=== PATIENT | female | born 1970 | race African-American/Black ===

== ENCOUNTER → 2016-11-14 | Day surgery (SDC) | payer OTHER ==
[~2016-11-14] VITALS: Ht 167.6 cm; Wt 115.2 kg
[~2016-11-14] MED LIST: ATRIPLA 600 MG-1 TA1 PO; ESTRACE1 M1 PO; IMITREX25 MG PO; JANUVIA100 MG PO; LAMICTAL200 MG PO; LAMICTAL25 MG PO; LYRICA100 M1 PO; METFORMIN HCL500 MG PO; MIRALAX17 GM PO; PRILOSEC20 M1 PO; Percocet 325 MG1 TAB PO; VENTOLIN H0.09 MG/AC INH; VISTARIL50 MG PO; VITAMIN D50000 UNIT PO; VOLTAREN50 M1 PO; XANAX XR1 MG PO; XANAX XR2 MG PO; ZOLOFT100 MG PO; ZOLOFT50 MG PO; ZYPREXA15 M1 PO
--- NOTE | ~2016-11-14 | O ---
[place], [place] OPERATIVE NOTE NAME: MARIBEL JIMENEZ REDWOOD LLCT #: [id number] UNIT #: [id number] ROOM: DOCTOR: FARIDEH VELAZQUEZ MD BIRTHDATE: [birth year] DOS: 11/14/2016 PREOPERATIVE DIAGNOSIS: Dysphagia. FINAL DIAGNOSIS: Distal esophagitis, grade 1, nonerosive, mild reflux. PROCEDURE DONE: EGD with antral biopsy. SURGEON: Dr. Velazquez. DESCRIPTION OF PROCEDURE: After MAC anesthesia placed in left lateral position. After the mouth guard attached the scope inserted through mouth, all the way up to the second portion of the duodenum. There is no tumor, mass, ulcer or any bile in there. Antral biopsy taken. Retroflexion reveals no pathology on the GE junction side, no hiatal hernia. The scope is brought back from retroflexion and pulled back. There is a very mild distal esophagitis. Esophagus itself shows no pathology. There is no sign of any stricture, tumor, or blockage. The pharynx and larynx showed maybe some thrush there and she takes her medication. IMPRESSION: Distal esophagitis, possible reflux. We will see the patient in 10 days. Farideh Velazquez MD CM:OPRECORD:OPERATIVE NOTE [id number] FARIDEH VELAZQUEZ MD 11/14/16 1145 interface
[2016-11-14 07:10] VITALS: BP 106/57
[2016-11-14 08:05] VITALS: BP 127/78
[2016-11-14 08:20] VITALS: BP 136/86
[2016-11-14 08:35] VITALS: BP 124/74
== END | disposition home or self-care (01) ==
LOC: SDC 11-10 13:15
DX: K21.0 Gastro-esophageal reflux disease with esophagitis (principal); F41.9 Anxiety disorder, unspecified; G43.909 Migraine, unspecified, not intractable, without status migrainosus; F32.9 Major depressive disorder, single episode, unspecified; Z85.41 Personal history of malignant neoplasm of cervix uteri; Z98.51 Tubal ligation status; Z90.710 Acquired absence of both cervix and uterus; Z83.3 Family history of diabetes mellitus; F17.210 Nicotine dependence, cigarettes, uncomplicated

== ENCOUNTER → 2016-11-18 | Outpatient (CLI) | payer OTHER | END | disposition home or self-care (01) | LOC: US 11-17 09:30 | DX: E11.9 Type 2 diabetes mellitus without complications (principal); R10.13 Epigastric pain; R05 Cough; K76.0 Fatty (change of) liver, not elsewhere classified; R07.89 Other chest pain; R06.02 Shortness of breath; R09.89 Other specified symptoms and signs involving the circulatory and respiratory systems; F17.200 Nicotine dependence, unspecified, uncomplicated ==

== ENCOUNTER → 2017-02-02 | Day surgery (SDC) | payer OTHER ==
[2017-02-01 14:44] VITALS: BP 138/83
[2017-02-01 15:41] LABS: HEMATOCRIT 36.9 % (37.0-47.0); HEMOGLOBIN 12.4 g/dl (12.0-16.0); MEAN CELL VOLUME 87.6 fl (81.0-99.0); MEAN CORPUSCULAR HGB 29.5 pg (27.0-31.0); MEAN CORPUSCULAR HGB CONC 33.6 g/dl (33.0-37.0); PLATELET COUNT AUTOMATED 244 10*3/uL (130-400); RED BLOOD COUNT 4.21 10*6/uL (4.10-5.10); WHITE BLOOD COUNT 10.3 10*3/uL (4.8-10.8)
[2017-02-01 15:42] LABS: BILIRUBIN NEGATIVE (NEGATIVE); BLOOD NEGATIVE (NEGATIVE); CLARITY CLEAR (CLEAR); COLOR YELLOW (YELLOW); GLUCOSE NEGATIVE (NEGATIVE); KETONE NEGATIVE (NEGATIVE); LEUKO ESTERASE NEGATIVE (NEGATIVE); NITRITE NEGATIVE (NEGATIVE); PROTEIN NEGATIVE (NEGATIVE); SPECIFIC GRAVITY 1.025 (1.005-1.030); UROBILINOGEN 0.2 E.U./dl (0.2-1.0)
[2017-02-01 15:50] LABS: EPITHELIAL CELLS TNTC
[2017-02-01 15:51] LABS: BACTERIA TRACE; RBC 0-2 rbc/hpf (0-2); YEAST TRACE
[2017-02-01 16:04] LABS: EOSINOPHIL # 0.1 10*3/uL (0-0.4); EOSINOPHILS 1 % (1-4); NEUTROPHIL # 4.2 10*3/uL (2.3-7.9); NEUTROPHILS 41 % (47-73); TOTAL CELLS COUNTED 100 #CELLS
[2017-02-01 16:05] LABS: PLATELET SUFFICIENCY NORMAL (NORMAL)
[2017-02-01 16:06] LABS: DIFFERENTIAL COMMENT SMUDGE CELLS PRESENT
[2017-02-01 16:14] LABS: PROTHROMBIN TIME 10.5 SECONDS (9.0-12.4)
[2017-02-01 16:15] LABS: ALBUMIN 3.4 gm/dl (3.1-4.5); ALKALINE PHOSPHATASE 93 U/L (45-117); BILIRUBIN, DIRECT < 0.1 mg/dL (0.0-0.2); BILIRUBIN, TOTAL 0.2 mg/dl (0.2-1.0); BUN 8 mg/dl (7-24); CARBON DIOXIDE 27 mmol/L (21-32); CHLORIDE 108 mmol/L (98-107); EST GLOM FILT AFRICAN AMERICAN > 60 ml/min; GLUCOSE 136 mg/dL (65-99); POTASSIUM 3.8 mmol/L (3.5-5.1); SGOT/AST 11 IU/L (3-35); SGPT/ALT 17 U/L (12-78); SODIUM 144 mmol/L (136-145); TOTAL PROTEIN 7.9 gm/dL (6.4-8.2)
[2017-02-02] VITALS (8 sets, daily range): BP systolic 120–165; BP diastolic 67–84
[~2017-02-02] VITALS: Ht 167.6 cm; Wt 111.1 kg
[~2017-02-02] MED LIST changes: +CYCLOBENZAPRINE10 MG PO; +MELATONIN5 M1 PO; +NORCO 5-325 TA1 EACH PO; +VITAMIN D50000 I3 PO
--- NOTE | ~2017-02-02 | O ---
[place], [place] OPERATIVE NOTE NAME: [id number] UNIT #: [id number] ROOM: DOCTOR: ELINA CANALES MD BIRTHDATE: [birth year] DOS: 02/02/2017 PREOPERATIVE DIAGNOSIS: Chronic cholecystitis. POSTOPERATIVE DIAGNOSIS: Chronic cholecystitis. PROCEDURE: Laparoscopic cholecystectomy. SURGEON: Elina Canales M.D. HOSPITALITY AIDE: MS3. ANESTHESIA: General with endotracheal intubation. INDICATIONS: This is a 46-year-old lady with a history of chronic cholecystitis and gallbladder sludge, who is here for the above-mentioned procedure. The procedure and its complications were explained to the patient in detail preoperatively. Complications that were discussed included but were not limited to bleeding, infection, damage to underlying vital structures, inadvertent injury, common bile duct, hematoma, seroma, sludge, biloma formation, incisional hernia formation, prolonged postoperative pain. She agreed to proceed. DESCRIPTION OF PROCEDURE: After identifying the patient, the patient was brought to the operating suite and laid in the supine position. After induction of general anesthesia, the parts were then painted and draped in the usual sterile fashion. A time-out procedure was called as well and the transverse incision just below the umbilicus was made. The skin and the subcutaneous tissue were incised in the line of the incision. The fascia was incised and the peritoneum was opened and a 12 mm Ngoc port was introduced and a pneumoperitoneum was created. Under direct vision, an epigastric incision of 10 mm and two 5 mm incisions were made in the right upper quadrant and appropriate size ports were introduced. The gallbladder was retracted superiorly and laterally. The cystic duct and the cystic artery were meticulously dissected until the critical view of safety was obtained and the triangle of Calot was identified thereafter each of these structures were clipped 3 times and cut between the first and the second clip. The gallbladder was then removed from the bed of the gallbladder with the help of the electrocautery. It was placed in an Endo Catch bag and removed from the peritoneal cavity and sent for histopathological diagnosis. Hemostasis was achieved in the liver bed. Thereafter, the right upper quadrant and the epigastric ports were removed and there was no bleeding seen. The umbilical port was removed as well. The fascial stay sutures were tied together and an additional stitch was taken to approximate the musculature of the nearby umbilicus. Thereafter, the subcutaneous tissue was irrigated and all the 4 incisions. The skin edges were infiltrated with 1% plain lidocaine and were approximated with the help of 4-0 Vicryl in a subcuticular running fashion. Dressings were given. The patient tolerated the procedure well. She was extubated uneventfully and brought back to the recovery room in stable fashion. There were no complications. Dr. Elina Canales, the attending surgeon, was present throughout the operating case. [place], [place] OPERATIVE NOTE NAME: MARIBEL JIMENEZ UNIT #: [id number] ROOM: DOCTOR: ELINA CANALES MD BIRTHDATE: [birth year] Elina Canales MD CM:OPRECORD:OPERATIVE NOTE 1132 1154 ELINA CANALES MD 02/02/17 1154 interface
== END | disposition home or self-care (01) ==
LOC: SDC 02-01 13:15
PROVIDERS: Surgery
DX: K81.1 Chronic cholecystitis (principal); K21.9 Gastro-esophageal reflux disease without esophagitis; I72.9 Aneurysm of unspecified site; G43.909 Migraine, unspecified, not intractable, without status migrainosus; F41.9 Anxiety disorder, unspecified; Z21 Asymptomatic human immunodeficiency virus [HIV] infection status; F32.9 Major depressive disorder, single episode, unspecified; Z85.41 Personal history of malignant neoplasm of cervix uteri; Z83.3 Family history of diabetes mellitus; Z90.710 Acquired absence of both cervix and uterus; Z98.51 Tubal ligation status; Z87.891 Personal history of nicotine dependence

== ENCOUNTER → 2017-02-10 | Outpatient (CLI) | payer OTHER ==
[2017-02-10 12:13] LABS: HEMOGLOBIN A1c 7.5 % (4.8-5.6)
== END | disposition home or self-care (01) ==
LOC: ORTHO 01:18
PROVIDERS: Orthopaedic Surgery
DX: M25.512 Pain in left shoulder (principal); M54.2 Cervicalgia; E11.42 Type 2 diabetes mellitus with diabetic polyneuropathy

== ENCOUNTER 2017-02-23 09:25 | Emergency (ER) | payer OTHER ==
[~2017-02-23] VITALS: Ht 167.6 cm; Wt 113.4 kg
[2017-02-23] MEDS ORDERED: ORPHENADRINE C100 M1 PO (11:13)
[2017-02-23] MEDS ORDERED: NAPROSYN500 MG PO (11:13)
== END 2017-02-23 11:25 | disposition home or self-care (01) ==
LOC: ED 09:25
DX: M54.12 Radiculopathy, cervical region (principal); F31.9 Bipolar disorder, unspecified; E11.9 Type 2 diabetes mellitus without complications; F17.200 Nicotine dependence, unspecified, uncomplicated; Z79.899 Other long term (current) drug therapy

== ENCOUNTER 2017-09-10 22:57 | Emergency (ER) | payer OTHER ==
[~2017-09-10] VITALS: Ht 170.1 cm; Wt 104.3 kg
[~2017-09-10 22:57] MED LIST changes: +NAPROSYN500 MG PO; +ORPHENADRINE C100 M1 PO
[2017-09-10 23:09] VITALS: BP 134/100
[2017-09-11] MEDS ORDERED: AUGMENTIN 500500 M1 PO (00:31)
[2017-09-11] MEDS ORDERED: ROBITUSSIN DM 105 ML PO (00:31)
[2017-09-11] MEDS ORDERED: PREDNISONE20 M1 PO (00:31)
== END 2017-09-11 00:56 | disposition home or self-care (01) ==
LOC: ED 22:57
DX: J40 Bronchitis, not specified as acute or chronic (principal); J04.0 Acute laryngitis; J32.9 Chronic sinusitis, unspecified; F17.200 Nicotine dependence, unspecified, uncomplicated; Z90.710 Acquired absence of both cervix and uterus; Z90.721 Acquired absence of ovaries, unilateral

== ENCOUNTER → 2018-01-30 | Outpatient (CLI) | payer OTHER ==
[~2018-01-30] MED LIST changes: +AUGMENTIN 500500 M1 PO; +PREDNISONE20 M1 PO; +ROBITUSSIN DM 105 ML PO
== END | disposition home or self-care (01) ==
LOC: RAD 11:06
DX: M54.2 Cervicalgia (principal); G89.29 Other chronic pain

== ENCOUNTER → 2018-05-02 | Outpatient (CLI) | payer OTHER | END | disposition home or self-care (01) | LOC: RAD 13:25 | DX: J93.9 Pneumothorax, unspecified (principal); V89.2XXD Person injured in unspecified motor-vehicle accident, traffic, subsequent encounter ==

== ENCOUNTER → 2018-07-04 | Outpatient (CLI) | payer OTHER ==
[2018-07-04 14:46] LABS: HEMOGLOBIN 12.2 g/dl (12.0-16.0); MEAN CELL VOLUME 87.5 fl (81.0-99.0); MEAN CORPUSCULAR HGB 28.8 pg (27.0-31.0); MEAN PLATELET VOLUME 12.3 fl (9.6-12.3); PLATELET COUNT AUTOMATED 249 10*3/uL (130-400); RED BLOOD COUNT 4.23 10*6/uL (4.10-5.10); RED CELL DISTRI WIDTH 13.7 % (0-14.5); WHITE BLOOD COUNT 13.4 10*3/uL (4.8-10.8)
[2018-07-04 15:06] LABS: ALBUMIN 3.3 gm/dl (3.1-4.5); BUN 9 mg/dl (7-24); CHLORIDE 102 mmol/L (98-107); POTASSIUM 3.8 mmol/L (3.5-5.1); SGOT/AST 10 IU/L (3-35); SGPT/ALT 18 U/L (12-78); SODIUM 136 mmol/L (136-145)
[2018-07-04 15:07] LABS: ALKALINE PHOSPHATASE 97 U/L (45-117); TOTAL PROTEIN 8.7 gm/dL (6.4-8.2)
[2018-07-04 16:51] LABS: BASOPHILS 1 % (0-1); TOTAL CELLS COUNTED 100 #CELLS
[2018-07-04 16:52] LABS: PLATELET SUFFICIENCY NORMAL (NORMAL)
[2018-07-06 16:07] LABS: HIV 1 AB Positive (Negative); HIV 2 AB Negative (Negative); INTERPRETATION HIV-1 Positive (.)
== END | disposition home or self-care (01) ==
LOC: LAB 13:19
PROVIDERS: Pediatrics
DX: J40 Bronchitis, not specified as acute or chronic (principal); E11.9 Type 2 diabetes mellitus without complications; F17.200 Nicotine dependence, unspecified, uncomplicated; J18.9 Pneumonia, unspecified organism

== ENCOUNTER 2018-08-23 13:26 | Emergency (ER) | payer OTHER ==
[~2018-08-23] VITALS: Ht 165.1 cm; Wt 101.6 kg
[2018-08-23 13:30] VITALS: BP 146/82
[2018-08-23 14:17] LABS: BASO % 0.4 % (0.0-1.0); EOS % 0.1 % (1.0-4.0); HEMATOCRIT 33.7 % (37.0-47.0); HEMOGLOBIN 11.3 g/dl (12.0-16.0); LYMPH # 2.8 10*3/uL (1.3-4.4); LYMPH % 26.9 % (27.0-41.0); MEAN CELL VOLUME 89.2 fl (81.0-99.0); MEAN CORPUSCULAR HGB 29.9 pg (27.0-31.0); MEAN CORPUSCULAR HGB CONC 33.5 g/dl (33.0-37.0); MEAN PLATELET VOLUME 11.2 fl (9.6-12.3); MONO # 0.5 10*3/uL (0.1-1.0); MONO % 4.7 % (3.0-9.0); NEUT # 7.1 10*3/uL (2.3-7.9); NEUT % 67.4 % (47.0-73.0); PLATELET COUNT AUTOMATED 207 10*3/uL (130-400); RED BLOOD COUNT 3.78 10*6/uL (4.10-5.10); RED CELL DISTRI WIDTH 14.3 % (0-14.5); WHITE BLOOD COUNT 10.5 10*3/uL (4.8-10.8)
[2018-08-23 14:32] LABS: ALBUMIN 3.6 gm/dl (3.1-4.5); ALKALINE PHOSPHATASE 84 U/L (45-117); BUN 9 mg/dl (7-24); CHLORIDE 105 mmol/L (98-107); CREATININE 0.71 mg/dL (0.55-1.02); POTASSIUM 3.8 mmol/L (3.5-5.1); SGOT/AST 16 IU/L (3-35); SGPT/ALT 23 U/L (12-78); SODIUM 137 mmol/L (136-145)
== END 2018-08-23 16:33 | disposition home or self-care (01) ==
LOC: ED 13:26
PROVIDERS: Physician Assistant
DX: R73.9 Hyperglycemia, unspecified (principal); R42 Dizziness and giddiness; R51 Headache; R11.0 Nausea; Z79.899 Other long term (current) drug therapy

== ENCOUNTER → 2019-07-04 | Outpatient (CLI) | payer OTHER ==
[~2019-07-04] MED LIST changes: +FLONASE ALLERG9.9 ML NAS
[2019-07-04 11:25] LABS: HEMATOCRIT 36.8 % (37.0-47.0); HEMOGLOBIN 12.1 g/dl (12.0-16.0); MEAN CELL VOLUME 88.7 fl (81.0-99.0); MEAN CORPUSCULAR HGB 29.2 pg (27.0-31.0); MEAN CORPUSCULAR HGB CONC 32.9 g/dl (33.0-37.0); MEAN PLATELET VOLUME 11.7 fl (9.6-12.3); PLATELET COUNT AUTOMATED 211 10*3/uL (130-400); RED BLOOD COUNT 4.15 10*6/uL (4.10-5.10); RED CELL DISTRI WIDTH 14.5 % (0-14.5); WHITE BLOOD COUNT 10.1 10*3/uL (4.8-10.8)
[2019-07-04 11:43] LABS: ALBUMIN 3.4 gm/dl (3.1-4.5); ALKALINE PHOSPHATASE 73 U/L (45-117); BUN 7 mg/dl (7-24); CHLORIDE 109 mmol/L (98-107); CHOLESTEROL 149 mg/dL (<200); CPK 83 U/L (26-192); HDL CHOLESTEROL 32 mg/dl (40-60); LDL CHOLESTEROL 88 mg/dL (9-159); POTASSIUM 3.8 mmol/L (3.5-5.1); SGOT/AST 13 IU/L (3-35); SGPT/ALT 20 U/L (12-78); SODIUM 142 mmol/L (136-145); THYROXINE (T4) TOTAL 10.4 ug/dl (4.8-13.9); TOTAL PROTEIN 7.4 gm/dL (6.4-8.2); TRIGLYCERIDES 143 mg/dl (<150); VLDL CHOLESTEROL 29 mg/dL (6-40)
[2019-07-04 11:48] LABS: T3 UPTAKE 34 % (31-39); THYROID STIM HORMONE (HS) 0.722 uIU/ml (0.358-4.75)
[2019-07-04 12:18] LABS: ATYPICAL LYMPHS 2 % (0-0); PLATELET SUFFICIENCY NORMAL (NORMAL); TOTAL CELLS COUNTED 100 #CELLS
[2019-07-08 14:05] LABS: CREATININE, RANDOM URINE 173.3 mg/dL (Not Estab.)
[2019-07-09 00:03] LABS: METANEPH-CREAT RATIO 0.4 (0.0-1.0)
== END | disposition home or self-care (01) ==
LOC: LAB 10:31
PROVIDERS: Pediatrics
DX: R04.0 Epistaxis (principal)

== ENCOUNTER 2019-08-29 11:25 | Emergency (ER) | payer OTHER ==
[~2019-08-29] VITALS: Ht 165.1 cm; Wt 118.8 kg
--- NOTE | ~2019-08-29 | EKG ---
[place], [place] ELECTROCARDIOGRAM REPORT NAME: MARIBEL JIMENEZ UNIT #: [id number] ROOM: DOCTOR: SUMIT DRAFT REPORT BIRTHDATE: [birth year] [facility] Test Date: 2019-08-29 Test Time: 11:28:52 Pat Name: MARIBEL JIMENEZ Department: Room: Gender: F Test Architect: : [id number] Requested By: RINKU PAT Order Number: [id number] Reading MD: Aisha Blake Measurements Intervals [place] Rate: 77 P: 69 WY: 148 QRS: 60 QRSD: 94 T: 55 QT: 383 QTc: 434 Interpretive Statements Sinus rhythm Baseline wander in lead(s) V4 Electronically Signed On 08-30-2019 7:40:50 PST by Aisha Blake CM:EKGRPT:ELECTROCARDIOGRAM REPORT [id number] RINKU ARANA DRAFT REPORT RINKU PAT MD
[2019-08-29 11:39] LABS: BASO # 0.1 10*3/uL (0.0-0.1); BASO % 0.7 % (0.0-1.0); EOS # 0.1 10*3/uL (0.0-0.4); EOS % 1.3 % (1.0-4.0); HEMATOCRIT 37.1 % (37.0-47.0); HEMOGLOBIN 12.2 g/dl (12.0-16.0); LYMPH # 4.4 10*3/uL (1.3-4.4); LYMPH % 51.6 % (27.0-41.0); MEAN CELL VOLUME 89.8 fl (81.0-99.0); MEAN CORPUSCULAR HGB 29.5 pg (27.0-31.0); MEAN CORPUSCULAR HGB CONC 32.9 g/dl (33.0-37.0); MEAN PLATELET VOLUME 11.2 fl (9.6-12.3); MONO # 0.8 10*3/uL (0.1-1.0); MONO % 8.8 % (3.0-9.0); NEUT # 3.2 10*3/uL (2.3-7.9); NEUT % 36.8 % (47.0-73.0); PLATELET COUNT AUTOMATED 225 10*3/uL (130-400); RED BLOOD COUNT 4.13 10*6/uL (4.10-5.10); RED CELL DISTRI WIDTH 14.6 % (0-14.5); WHITE BLOOD COUNT 8.6 10*3/uL (4.8-10.8)
[2019-08-29 11:50] LABS: INTERNATIONAL NORM RATIO 0.9 (2.0-3.5)
[2019-08-29 11:55] LABS: ALBUMIN 3.4 gm/dl (3.1-4.5); ALKALINE PHOSPHATASE 73 U/L (45-117); BUN 10 mg/dl (7-24); CHLORIDE 110 mmol/L (98-107); CREATININE 0.88 mg/dL (0.55-1.02); POTASSIUM 3.8 mmol/L (3.5-5.1); SGOT/AST 15 IU/L (3-35); SGPT/ALT 21 U/L (12-78); SODIUM 141 mmol/L (136-145); TOTAL PROTEIN 7.7 gm/dL (6.4-8.2)
[2019-08-29 11:59] LABS: TROPONIN I < 0.015 ng/ml (<0.045)
[2019-08-29 13:05] VITALS: BP 136/79
[2019-08-29 13:26] LABS: BILIRUBIN NEGATIVE (NEGATIVE); BLOOD NEGATIVE (NEGATIVE); CLARITY CLOUDY (CLEAR); COLOR YELLOW (YELLOW); GLUCOSE NEGATIVE (NEGATIVE); KETONE NEGATIVE (NEGATIVE); LEUKO ESTERASE NEGATIVE (NEGATIVE); NITRITE NEGATIVE (NEGATIVE); SPECIFIC GRAVITY >= 1.030 (1.005-1.030); UROBILINOGEN 0.2 E.U./dl (0.2-1.0)
[2019-08-29 13:37] LABS: BACTERIA 3+; EPITHELIAL CELLS 30-40
== END 2019-08-29 13:31 | disposition home or self-care (01) ==
LOC: ED 11:25
PROVIDERS: Emergency Medicine
DX: G43.909 Migraine, unspecified, not intractable, without status migrainosus (principal); E66.01 Morbid (severe) obesity due to excess calories; E11.9 Type 2 diabetes mellitus without complications; F12.90 Cannabis use, unspecified, uncomplicated; K21.9 Gastro-esophageal reflux disease without esophagitis; F17.200 Nicotine dependence, unspecified, uncomplicated; Z79.899 Other long term (current) drug therapy

== ENCOUNTER → 2019-10-02 | Outpatient (CLI) | payer OTHER ==
[2019-10-02 09:03] LABS: HEMATOCRIT 35.8 % (37.0-47.0); HEMOGLOBIN 11.6 g/dl (12.0-16.0); MEAN CELL VOLUME 88.8 fl (81.0-99.0); MEAN CORPUSCULAR HGB 28.8 pg (27.0-31.0); MEAN CORPUSCULAR HGB CONC 32.4 g/dl (33.0-37.0); PLATELET COUNT AUTOMATED 191 10*3/uL (130-400); RED BLOOD COUNT 4.03 10*6/uL (4.10-5.10); RED CELL DISTRI WIDTH 14.3 % (0-14.5); WHITE BLOOD COUNT 10.5 10*3/uL (4.8-10.8)
[2019-10-02 10:10] LABS: ACT PARTIAL THROMBO TIME 25.1 SECONDS (20.0-32.1); INTERNATIONAL NORM RATIO 0.9 (2.0-3.5)
[2019-10-02 11:02] LABS: BASOPHILS 1 % (0-1); PLATELET SUFFICIENCY NORMAL (NORMAL); POLYCHROMASIA SLIGHT; TOTAL CELLS COUNTED 100 #CELLS
[2019-10-03 12:11] LABS: ANTI-DSDNA ANTIBODIES 096339 2 IU/mL (0-9); ANTI-RNP ANTIBODIES <0.2 AI (0.0-0.9); ANTICHROMATIN ANTIBODIES <0.2 AI (0.0-0.9); ANTISCLERODERMA-70 AB <0.2 AI (0.0-0.9); SJOGREN ANTI-SS-A <0.2 AI (0.0-0.9); SJOREN AB, ANTI-SS-B <0.2 AI (0.0-0.9)
== END ==
LOC: LAB 08:36
PROVIDERS: Internal Medicine
DX: N02.8 Recurrent and persistent hematuria with other morphologic changes (principal); R23.0 Cyanosis

== ENCOUNTER 2019-10-11 08:44 | Inpatient (IN) | payer OTHER ==
[~2019-10-11] VITALS: Ht 167.6 cm; Wt 117.0 kg
[2019-10-11 08:48] VITALS: BP 157/75
[2019-10-11 10:27] LABS: HEMATOCRIT 35.3 % (37.0-47.0); HEMOGLOBIN 11.6 g/dl (12.0-16.0); MEAN CELL VOLUME 88.9 fl (81.0-99.0); MEAN CORPUSCULAR HGB 29.2 pg (27.0-31.0); MEAN CORPUSCULAR HGB CONC 32.9 g/dl (33.0-37.0); MEAN PLATELET VOLUME 11.7 fl (9.6-12.3); PLATELET COUNT AUTOMATED 184 10*3/uL (130-400); RED BLOOD COUNT 3.97 10*6/uL (4.10-5.10); RED CELL DISTRI WIDTH 14.2 % (0-14.5)
[2019-10-11 10:43] LABS: ALBUMIN 3.2 gm/dl (3.1-4.5); ALKALINE PHOSPHATASE 91 U/L (45-117); BUN 5 mg/dl (7-24); CHLORIDE 105 mmol/L (98-107); LIPASE 80 U/L (73-393); POTASSIUM 3.4 mmol/L (3.5-5.1); SGOT/AST 18 IU/L (3-35); SGPT/ALT 22 U/L (12-78); SODIUM 139 mmol/L (136-145); TOTAL PROTEIN 8.1 gm/dL (6.4-8.2)
[2019-10-11 10:55] LABS: PLATELET SUFFICIENCY NORMAL (NORMAL); TOTAL CELLS COUNTED 100 #CELLS
[2019-10-11 11:31] VITALS: BP 146/70
--- NOTE | 2019-10-11 12:45 | NUR ---
BED ASSIGNED 427. RESIDENTS TO BEDSIDE, ADMISSION DELAYED.
--- NOTE | 2019-10-11 13:10 | NUR ---
Time: 1309 A 49 year old FEMALE admitted to under services of SABRINA ALFREDO DO. Pt. arrived via stretcher from ER. Chief complaint: SOB AND HEADACHE. PATRIZIA HILLIARD
[2019-10-11] MEDS ORDERED: LYRICA200 M1 PO (13:58)
[2019-10-11] MEDS ORDERED: TRAD5TAB1 PO (13:59)
[2019-10-11] MEDS ORDERED: TRIUMEQ TABLET1 EACH PO (14:08)
[2019-10-11] MEDS ORDERED: MUCINEX ER600 MG PO (14:17)
[2019-10-11] MEDS ORDERED: FLAGYL500 MG PO (14:18)
[2019-10-11] MEDS ORDERED: DIFLUCAN40 MG/1 ML PO (14:19)
[2019-10-11] MEDS ORDERED: PROMETH-CODEIN 65 ML PO (14:20)
[2019-10-11] MEDS ORDERED: SIMVASTATIN20 MG PO (14:21)
[2019-10-11] MEDS ORDERED: NICODERM CQ1 EAC2 TD (14:21)
[2019-10-11] MEDS ORDERED: AZELASTINE137 MCG/0. NAS (14:23)
[2019-10-11] MEDS ORDERED: NESINA PO (14:25)
[2019-10-11] MEDS ORDERED: IBU800 M2 PO (14:26)
--- NOTE | 2019-10-11 15:40 | NUR ---
NOTIFIED DR GOMEZ OF CONSULT. STATED THAT SHE WOULD SEE HIM TOMORROW.
[2019-10-11 16:00] VITALS: BP 130/72
[2019-10-11] MEDS ORDERED: BASAG SOL SQ (16:20)
[2019-10-11] MEDS ORDERED: NAPROXEN500 M1 PO (16:23)
[2019-10-11] MEDS ORDERED: NEURONTIN300 MG PO (16:36)
[2019-10-11] MEDS ORDERED: ESTRADIOL1 MG PO (16:39)
[2019-10-11] MEDS ORDERED: ACYCLOVIR400 MG PO (16:40)
--- NOTE | 2019-10-11 17:18 | NUR ---
DR COLLINS MADE AWARE OF UPDATED MED LIST. PT PROVIDED BOTTLES FROM HOME.
--- NOTE | 2019-10-11 19:54 | NUR ---
CALLED DR. ARAUJO AND SPOKE WITH HIM ABOUT THROAT LOZENGE FOR PATIENT.
[2019-10-11 20:00] VITALS: BP 149/80
--- NOTE | 2019-10-11 20:15 | NUR ---
CEPACOL LOZENGE GIVEN FOR SORE THROAT PER PT. REQUEST.
--- NOTE | 2019-10-11 20:20 | NUR ---
NORCO GIVEN PER ORDER FOR HEADACHE RATED "8" PER PT. WHEN SHE COUGHS. SEE MAR.
--- NOTE | 2019-10-11 21:20 | NUR ---
NORCO EFFECTIVE FOR PAIN PER PT. CEPACOL LOZENGE PATIENT DID NOT LIKE THIS BUT IT DID NUMB THROAT.
--- NOTE | 2019-10-11 21:36 | NUR ---
CALLED DR. YAO AND NOTIFIED HER PATIENT MEDICATIONS RECONCILLED.
--- NOTE | 2019-10-11 22:15 | NUR ---
BSG 344 PT. REFUSED TO HAVE REPEAT DONE "HATES NEEDLES". DOCTOR TO BE NOTIFIED.
--- NOTE | 2019-10-11 23:31 | NUR ---
DR. ARAUJO NOTIFIED OF THE BLOOD SUGAR 344. OKAY TO HAVE USED THE SLIDING SCALE COVERAGE.
[2019-10-12] VITALS: BP 135/91
--- NOTE | 2019-10-12 02:53 | NUR ---
24 HR chart check completed.
[2019-10-12 06:32] LABS: HEMOGLOBIN 10.6 g/dl (12.0-16.0); MEAN CELL VOLUME 87.9 fl (81.0-99.0); MEAN CORPUSCULAR HGB 29.1 pg (27.0-31.0); MEAN CORPUSCULAR HGB CONC 33.1 g/dl (33.0-37.0); MEAN PLATELET VOLUME 12.1 fl (9.6-12.3); PLATELET COUNT AUTOMATED 191 10*3/uL (130-400); RED BLOOD COUNT 3.64 10*6/uL (4.10-5.10); WHITE BLOOD COUNT 14.2 10*3/uL (4.8-10.8)
[2019-10-12 06:49] LABS: ALBUMIN 2.9 gm/dl (3.1-4.5); BUN 7 mg/dl (7-24); CHLORIDE 108 mmol/L (98-107); CHOLESTEROL 119 mg/dL (<200); PHOSPHOROUS 1.9 mg/dL (2.5-4.9); POTASSIUM 3.8 mmol/L (3.5-5.1); SGOT/AST 11 IU/L (3-35); SGPT/ALT 20 U/L (12-78); SODIUM 139 mmol/L (136-145); TOTAL PROTEIN 7.7 gm/dL (6.4-8.2); TRIGLYCERIDES 100 mg/dl (<150); VLDL CHOLESTEROL 20 mg/dL (6-40)
[2019-10-12 06:55] LABS: ALKALINE PHOSPHATASE 88 U/L (45-117); FREE T4 1.27 ng/dl (0.76-1.46); HDL CHOLESTEROL 28 mg/dl (40-60); LDL CHOLESTEROL 71 mg/dL (9-159); THYROID STIM HORMONE (HS) 0.154 uIU/ml (0.358-4.75)
[2019-10-12 07:29] LABS: BASOPHILS 1 % (0-1); POLYCHROMASIA SLIGHT; TOTAL CELLS COUNTED 100 #CELLS
[2019-10-12 07:30] LABS: PLATELET SUFFICIENCY NORMAL (NORMAL)
[2019-10-12 07:31] LABS: ACT PARTIAL THROMBO TIME 28.2 SECONDS (20.0-32.1)
[2019-10-12 07:40] LABS: VITAMIN D, 25-HYDROXY 57.6 ng/mL (30-100)
[2019-10-12 12:00] VITALS: BP 135/74
[2019-10-12 16:00] VITALS: BP 139/73
[2019-10-12 20:00] VITALS: BP 123/63
[2019-10-13] VITALS: BP 152/71
--- NOTE | 2019-10-13 05:42 | NUR ---
LAB NOTIFIED THIS NURSE THAT PATIENTS LAB WORK IS FOR SEND OUT AND THEY DO NOT ACCEPT SPECIMENS ON MONDAY. WILL HAVE TO DRAW TOMORROW
[2019-10-13 06:34] LABS: HEMATOCRIT 32.6 % (37.0-47.0); HEMOGLOBIN 10.5 g/dl (12.0-16.0); MEAN CELL VOLUME 88.8 fl (81.0-99.0); MEAN CORPUSCULAR HGB 28.6 pg (27.0-31.0); MEAN CORPUSCULAR HGB CONC 32.2 g/dl (33.0-37.0); MEAN PLATELET VOLUME 12.7 fl (9.6-12.3); NUCLEATED RED BLOOD CELL 0.1 % (0.0-0.0); PLATELET COUNT AUTOMATED 220 10*3/uL (130-400); RED BLOOD COUNT 3.67 10*6/uL (4.10-5.10); RED CELL DISTRI WIDTH 14.3 % (0-14.5); WHITE BLOOD COUNT 15.1 10*3/uL (4.8-10.8)
[2019-10-13 07:00] LABS: BUN 13 mg/dl (7-24); CHLORIDE 108 mmol/L (98-107); CREATININE 0.92 mg/dL (0.55-1.02); POTASSIUM 4.2 mmol/L (3.5-5.1); SODIUM 138 mmol/L (136-145)
[2019-10-13 07:08] LABS: PLATELET SUFFICIENCY NORMAL (NORMAL); POLYCHROMASIA SLIGHT; TARGET CELLS FEW; TOTAL CELLS COUNTED 100 #CELLS
[2019-10-13 08:30] VITALS: BP 160/80
[2019-10-13 12:00] VITALS: BP 170/80
[2019-10-13 16:00] VITALS: BP 144/55; BP 168/96
--- NOTE | 2019-10-13 16:12 | NUR ---
spoke to kelin andino, cloth wire weaver with ID, updated on patient. no changes in medication treatment at this time per kelin andino. aware that dr. cruz was concerned with papules in back of throat, per ID patient is on acyclovir and diflucan, continue with that treatment at this time. aware cd 4 cd8 counts will not be drawn and sent out until tomorrow
--- NOTE | 2019-10-13 16:37 | NUR ---
DR. COSME NOTIFIED OF ELEVATED BLOOD SUGAR OF 408, OKAY TO FOLLOW SLIDING SCALE AND THEN RECHECK IN ONE HOUR POST INSULIN ADMINISTRATION
--- NOTE | 2019-10-13 17:46 | NUR ---
BLOOD SUGAR RECHECK, 417. NOTIFY PHYSICIAN
--- NOTE | 2019-10-13 17:49 | NUR ---
DR. COSME NOTIFIED OF ELEVATED BS OF 417, ORDER TO ADMINISTER ANOTHER 7 UNITS INSULIN NOW
[2019-10-13 20:00] VITALS: BP 167/77
[2019-10-14] VITALS (7 sets, daily range): BP systolic 136–161; BP diastolic 66–88
--- NOTE | 2019-10-14 08:15 | NUR ---
MEDICATED WITH PRN PO NORCO FOR LEFT SIDE MIGRAINE PAIN AND GENERALIZED BODY ACHES/LOW BACK ACHES. ALSO ADMINISTERED PRN PO ROBITUSSIN AND CEPACOL THROAT LOZENGE FOR CONGESTION/COUGH, AND SORE THROAT/THROAT SWELLING.
--- NOTE | 2019-10-14 09:00 | NUR ---
Tactical Debriefer Officer in to talk to patient. Patient states lives at home with her nephews. There are 26 steps in the home. Physician: Dr. Ilir Comer Pharmacy: [facility] Home health services: none Patient's level of ADLs: INDEPENDENT Patient has working utilities: yes DME: none Follow-up physician's appointment after d/c: will be made by the hospitalist nurse director upon discharge Does patient want to access PORTAL?: no Discharge plan discussed with patient. She lives at home with her nephews. She is independent in her ADLs and ambulation. Discussed home health care services and she denies any home needs at this time. When medically stable she will be discharged to home. Her mother will provide transportation on discharge. ALYSA MACKEY
--- NOTE | 2019-10-14 09:53 | NUR ---
DR. [place] NOTIFIED OF CONSULT RE: DYSPHAGIA W/HIV, NEEDS EGD.
--- NOTE | 2019-10-14 12:17 | NUR ---
SPEECH PATHOLOGY Patient seen for bedisde swallowing evaluation this am per physician orders. Patient admitted for SOB and headache/sinus pressure. PMHx of GERD, cervical cancer, brain aneurysm, migraines, anxiety. Diagnosed on this admission with pheumonitis and laryngitis. CT scan of chest showed no effusions, no pneumothorax, and no consolidations in the lungs. WBC elevated. Patient c/o difficulty swalling, pain in throat during swallowing, hoarse voice, food getting stuck and requiring extra effort to swallow. No complaints of coughing with liquids. Patient is a smoker (1 pk daily for 40 yrs). Patient was assessed after she had finished her breakfast meal. She stated that she had divehi toast and had difficulty swallowing bites at times. Observed by clinician with several bites of banana with visibly labored swallowing. Trials of thin liquid water also observed with patient stating that the water briefly got stuck going down (this caused her to audibly belch on 2 trials). No s/s of aspiration throughout. Oral mech exam revealed no difficulty with strength, ROM, coordination of tongue, lips, jaw, throat, etc. However, observed moderate erythema and edema in back of pharynx. Patient complained of having a cough for several weeks and her voice was audibly hoarse. Patient presents with mild pharyngeal dysphagia characterized by difficulty/pain during swallowing any consistency, including swallowing secretions/saliva, secondary to redness/swelling of pharynx due to unknown cause. Patient is receiving en EGD this date and will be NPO. Recommending return to soft diet after procedure and follow-up therapy to ensure adherence to safe swallowing strategies (upright posture, alternating liquids/solids, small amounts) and determine safest level of diet going forward. Thank you for this referral, Harpal Huber MA [facility]-CLINICAL SCIENTIST
--- NOTE | 2019-10-14 16:15 | NUR ---
WOULD LIKE ID TO BE CONTACTED AND ASKED THEIR RECCOMENDATIONS. ID ANSWERING SERVICE CONTACTED AND ASKED FOR A CALL BACK.
--- NOTE | 2019-10-14 17:00 | NUR ---
INFORMED OF ID RECCOMENDATIONS.
--- NOTE | 2019-10-14 21:20 | NUR ---
PT MEDICATED WITH NORCO UPON REQUEST FOR COMPLAINTS OF BACK PAIN. WILL MONITOR.
--- NOTE | 2019-10-14 22:13 | NUR ---
PT RESTING COMFORTABLY IN BED WITH NO S/S OF DISTRESS NOTED. PAIN MEDICATION HAS BEEN EFFECTIVE. CALL LIGHT WITHIN REACH.
[2019-10-15] VITALS: BP 169/85
--- NOTE | 2019-10-15 03:43 | NUR ---
24 HR chart check completed.
[2019-10-15 04:06] LABS: LYMPHOCYTES, ABSOLUTE 4.3 x10E3/uL (0.7-3.1); WBC 15.9 x10E3/uL (3.4-10.8)
[2019-10-15 06:27] LABS: BASO # 0.1 10*3/uL (0.0-0.1); BASO % 0.5 % (0.0-1.0); EOS % 0.1 % (1.0-4.0); HEMATOCRIT 36.7 % (37.0-47.0); HEMOGLOBIN 12.2 g/dl (12.0-16.0); LYMPH % 25.6 % (27.0-41.0); MEAN CELL VOLUME 86.4 fl (81.0-99.0); MEAN CORPUSCULAR HGB 28.7 pg (27.0-31.0); MEAN CORPUSCULAR HGB CONC 33.2 g/dl (33.0-37.0); MEAN PLATELET VOLUME 12.5 fl (9.6-12.3); MONO % 5.2 % (3.0-9.0); NEUT # 12.1 10*3/uL (2.3-7.9); NEUT % 62.2 % (47.0-73.0); NUCLEATED RED BLOOD CELL 0.1 10*3/uL (0.0-0.0); NUCLEATED RED BLOOD CELL 0.3 % (0.0-0.0); RED BLOOD COUNT 4.25 10*6/uL (4.10-5.10); WHITE BLOOD COUNT 19.4 10*3/uL (4.8-10.8)
[2019-10-15 06:38] LABS: BUN 13 mg/dl (7-24); CHLORIDE 100 mmol/L (98-107); CREATININE 0.93 mg/dL (0.55-1.02); POTASSIUM 4.5 mmol/L (3.5-5.1); SODIUM 135 mmol/L (136-145)
--- NOTE | 2019-10-15 06:40 | NUR ---
PATIENT REFUSING SECOND BLOOD SUGAR CHECK FOR BLOOD SUGART OF 375. COVERAGE PER S/S GIVEN. DR. MUÑOZ NOTIFIED OF BLOOD SUGAR AND THAT COVERAGE WAS GIVEN.
[2019-10-15 07:07] LABS: PLATELET COUNT AUTOMATED 299 10*3/uL (130-400)
[2019-10-15 07:58] LABS: PLATELET SUFFICIENCY NORMAL (NORMAL)
[2019-10-15 08:00] VITALS: BP 138/58
--- NOTE | 2019-10-15 10:11 | NUR ---
SPEECH PATHOLOGY Patient seen this am for follow-up swallowing treatment. She was seated at 90 degrees at side of bed. Observed beginning of her breakfast meal. She had omelet, hebrew toast, and diet coke. She swallowed all consistencies without difficulty and reported no pain with swallows. No s/s aspiration throughout. She reported that her throat pain had subsided somewhat from previous day. Mild cough observed several times, however, unrelated to swallowing. Clinician reiterated strategies for safe swallowing from previous day, including eating moist food, alternating solids/liquids to aid in bolus propulsion and residue clearing, small bites/sips. She complied with these recommendations during her meal. Continue soft diet until discharge to reduce difficulty and pain with swallowing during her stay at this facility. Continue short term follow-up therapy to monitor for continued improvement of swallow function, reduction of pain with swallowing, and adherence to swallowing precautions. Harpal Huber MA [facility]-DIRECTOR PUBLIC SERVICE
[2019-10-15] MEDS ORDERED: PREDNISONE10 MG PO (10:24)
[2019-10-15] MEDS ORDERED: ACYCLOVIR400 MG PO (10:24)
[2019-10-15] MEDS ORDERED: FLUCONAZOLE100 MG PO (10:24)
[2019-10-15 12:00] VITALS: BP 142/75
[2019-10-15 13:06] LABS: ABSOLUTE CD 4 HELPER 1419 /uL (359-1519); ABSOLUTE CD8 SUPRESSOR 1226 /uL (109-897); CD 8 POS LYMPH, % 28.5 % (12.0-35.5); CD4-CD8 RATIO 1.16 (0.92-3.72)
--- NOTE | 2019-10-15 14:12 | NUR ---
Discharge instructions reviewed with patient/family. Patient receptive and verbalizes understanding. Follow-up care arranged. Written instructions given to patient/family. PATRIZIA HILLIARD\
[2019-10-19 00:05] LABS: ADENOVIRUS Negative (Negative); INFLUENZA A Negative (Negative); INFLUENZA B Negative (Negative); METAPNEUMOVIRUS Negative (Negative); PARAINFLUENZA 1 Negative (Negative); PARAINFLUENZA 2 Negative (Negative); PARAINFLUENZA 3 Negative (Negative); RHINOVIRUS Negative (Negative); RSV A Negative (Negative); RSV B Negative (Negative)
== END 2019-10-15 14:42 | disposition home or self-care (01) | DRG 892 ==
LOC: ED 08:44 → EDHOLD 12:41 → 4E 12:41
PROVIDERS: Family Medicine; Internal Medicine; Nurse Practitioner; Physician Assistant; ADMIT Internal Medicine
PROC: 0DB78ZX Excision of Stomach, Pylorus, Via Natural or Artificial Opening Endoscopic, Diagnostic (ICD-10-PCS; principal; 2019-10-14)
DX: A41.9 Sepsis, unspecified organism (principal); J18.9 Pneumonia, unspecified organism; E66.01 Morbid (severe) obesity due to excess calories; G43.909 Migraine, unspecified, not intractable, without status migrainosus; R13.10 Dysphagia, unspecified; E11.40 Type 2 diabetes mellitus with diabetic neuropathy, unspecified; E11.65 Type 2 diabetes mellitus with hyperglycemia; K21.9 Gastro-esophageal reflux disease without esophagitis; E55.9 Vitamin D deficiency, unspecified; G47.00 Insomnia, unspecified; E87.6 Hypokalemia; K29.70 Gastritis, unspecified, without bleeding; K44.9 Diaphragmatic hernia without obstruction or gangrene; B20 Human immunodeficiency virus [HIV] disease; D64.9 Anemia, unspecified; I10 Essential (primary) hypertension; F17.210 Nicotine dependence, cigarettes, uncomplicated; Z71.6 Tobacco abuse counseling; Z90.710 Acquired absence of both cervix and uterus; Z90.722 Acquired absence of ovaries, bilateral; Z98.51 Tubal ligation status; Z83.3 Family history of diabetes mellitus; Z90.49 Acquired absence of other specified parts of digestive tract; Z79.899 Other long term (current) drug therapy; Z82.49 Family history of ischemic heart disease and other diseases of the circulatory system; Z68.41 Body mass index [BMI] 40.0-44.9, adult

== ENCOUNTER → 2020-02-05 | Outpatient (CLI) | payer OTHER ==
[~2020-02-05] MED LIST changes: +ACYCLOVIR400 MG PO; +AZELASTINE137 MCG/0. NAS; +BASAG SOL SQ; +DIFLUCAN40 MG/1 ML PO; +ESTRADIOL1 MG PO; +FLAGYL500 MG PO; +FLUCONAZOLE100 MG PO; +IBU800 M2 PO; +LYRICA200 M1 PO; +MUCINEX ER600 MG PO; +NAPROXEN500 M1 PO; +NESINA PO; +NEURONTIN300 MG PO; +NICODERM CQ1 EAC2 TD; +PREDNISONE10 MG PO; +PROMETH-CODEIN 65 ML PO; +SIMVASTATIN20 MG PO; +TRAD5TAB1 PO; +TRIUMEQ TABLET1 EACH PO
[2020-02-05 15:06] LABS: BUN 14 mg/dl (7-24); CREATININE 0.81 mg/dL (0.55-1.02)
[2020-02-07 15:04] LABS: ALTERNARIA ALTERNATA, IGE <0.10 kU/L (Class 0); AMERICAN ELM, IGE <0.10 kU/L (Class 0); ASPERGILLUS FUMIGATU, IGE <0.10 kU/L (Class 0); BERMUDA GRASS, IGE <0.10 kU/L (Class 0); BIRCH, COMMON SILVER IGE <0.10 kU/L (Class 0); CLADOSPORIUM HERBARU, IGE <0.10 kU/L (Class 0); CORN, IGE <0.10 kU/L (Class 0); D FARINAE MITE <0.10 kU/L (Class 0); D PTERONYSSINUS <0.10 kU/L (Class 0); DOG DANDER, IGE <0.10 kU/L (Class 0); IMMUNOGLOBULIN IgE <2 IU/mL (6-495); MAPLE LEAF SYCAMORE, IGE <0.10 kU/L (Class 0); MAPLE/BOX ELDER, IGE <0.10 kU/L (Class 0); MILK (COW), IGE <0.10 kU/L (Class 0); MOUSE URINE IGE <0.10 kU/L (Class 0); PEANUT, IGE <0.10 kU/L (Class 0); PENICILLIUM CHRYSOGENUM, IGE <0.10 kU/L (Class 0); ROUGH PIGWEED, IGE <0.10 kU/L (Class 0); SHEEP SORREL (DOCK), IGE <0.10 kU/L (Class 0); SHORT RAGWEED, IGE <0.10 kU/L (Class 0); SOYBEAN, IGE <0.10 kU/L (Class 0); TIMOTHY, IGE <0.10 kU/L (Class 0); WALNUT TREE, IGE <0.10 kU/L (Class 0); WHEAT, IGE <0.10 kU/L (Class 0); WHITE ASH, IGE <0.10 kU/L (Class 0); WHITE MULBERRY, IGE <0.10 kU/L (Class 0); WHITE OAK, IGE <0.10 kU/L (Class 0)
== END | disposition home or self-care (01) ==
LOC: LAB 14:16
PROVIDERS: Specialist
DX: J30.9 Allergic rhinitis, unspecified (principal); R51 Headache

== ENCOUNTER → 2020-07-16 | Outpatient (CLI) | payer OTHER | END | disposition home or self-care (01) | LOC: RAD 14:25 | PROVIDERS: ATTEND Family Medicine | DX: M17.0 Bilateral primary osteoarthritis of knee (principal); E11.42 Type 2 diabetes mellitus with diabetic polyneuropathy ==

== ENCOUNTER 2020-09-04 07:22 | Emergency (ER) | payer OTHER ==
[~2020-09-04] VITALS: Ht 165.1 cm; Wt 108.9 kg
[2020-09-04 14:56] VITALS: BP 124/70
== END 2020-09-04 15:10 | disposition home or self-care (01) ==
LOC: ED 07:22
DX: G43.909 Migraine, unspecified, not intractable, without status migrainosus (principal); Z79.899 Other long term (current) drug therapy; Z79.4 Long term (current) use of insulin; Z79.2 Long term (current) use of antibiotics; V89.2XXA Person injured in unspecified motor-vehicle accident, traffic, initial encounter; Y93.89 Activity, other specified; Y92.89 Other specified places as the place of occurrence of the external cause; Y99.8 Other external cause status

== ENCOUNTER → 2020-11-18 | Outpatient (CLI) | payer OTHER ==
[~2020-11-18] MED LIST changes: +ASPIRIN ADULT L81 M1 PO; +COZAAR50 M1 PO; +CYMBALTA30 MG PO; +ZYPREXA5 M1 PO
== END | disposition home or self-care (01) ==
LOC: CARD 00:22
PROVIDERS: ATTEND Internal Medicine Cardiovascular Disease
DX: I51.9 Heart disease, unspecified (principal); R07.2 Precordial pain; R53.81 Other malaise

== ENCOUNTER → 2021-01-04 | Outpatient (CLI) | payer OTHER | END | disposition home or self-care (01) | LOC: CARD 12-17 15:00 | PROVIDERS: ATTEND Internal Medicine Cardiovascular Disease | DX: I51.7 Cardiomegaly (principal) ==

== ENCOUNTER 2021-05-03 17:23 | Emergency (ER) | payer OTHER ==
[~2021-05-03] VITALS: Ht 167.6 cm; Wt 105.7 kg
[2021-05-03 17:53] VITALS: BP 111/65
[2021-05-03 18:26] LABS: HEMATOCRIT 38.6 % (37.0-47.0); MEAN CELL VOLUME 86.9 fl (81.0-99.0); MEAN CORPUSCULAR HGB 28.8 pg (27.0-31.0); MEAN CORPUSCULAR HGB CONC 33.2 g/dl (33.0-37.0); MEAN PLATELET VOLUME 11.1 fl (9.6-12.3); PLATELET COUNT AUTOMATED 261 10*3/uL (130-400); RED BLOOD COUNT 4.44 10*6/uL (4.10-5.10); RED CELL DISTRI WIDTH 13.8 % (0-14.5); WHITE BLOOD COUNT 8.8 10*3/uL (4.8-10.8)
[2021-05-03 18:44] LABS: ALBUMIN 3.7 gm/dl (3.1-4.5); ALKALINE PHOSPHATASE 91 U/L (45-117); BUN 10 mg/dl (7-24); CHLORIDE 107 mmol/L (98-107); CREATININE 0.92 mg/dL (0.55-1.02); POTASSIUM 3.8 mmol/L (3.5-5.1); SGOT/AST 17 IU/L (3-35); SODIUM 138 mmol/L (136-145); TOTAL PROTEIN 8.2 gm/dL (6.4-8.2)
[2021-05-03 18:48] LABS: SGPT/ALT 24 U/L (12-78)
[2021-05-03 18:57] LABS: ATYPICAL LYMPHS 4 % (0-0); PLATELET SUFFICIENCY NORMAL (NORMAL); TOTAL CELLS COUNTED 100 #CELLS
[2021-05-03] MEDS ORDERED: MEDROL DOSEPAK4 MG PO (20:14)
== END 2021-05-03 20:04 | disposition home or self-care (01) ==
LOC: ED 17:23
PROVIDERS: Physician Assistant
DX: J03.80 Acute tonsillitis due to other specified organisms (principal); B27.80 Other infectious mononucleosis without complication; F17.200 Nicotine dependence, unspecified, uncomplicated; Z90.710 Acquired absence of both cervix and uterus; Z98.51 Tubal ligation status; Z90.49 Acquired absence of other specified parts of digestive tract; Z79.899 Other long term (current) drug therapy; Z79.82 Long term (current) use of aspirin

== ENCOUNTER → 2021-11-25 | Outpatient (CLI) | payer OTHER ==
[~2021-11-25] MED LIST changes: +MEDROL DOSEPAK4 MG PO
== END | disposition home or self-care (01) ==
LOC: RAD 09:08
PROVIDERS: ATTEND Nurse Practitioner Family
DX: M19.021 Primary osteoarthritis, right elbow (principal); M89.8X2 Other specified disorders of bone, upper arm; M19.011 Primary osteoarthritis, right shoulder; E11.42 Type 2 diabetes mellitus with diabetic polyneuropathy

== ENCOUNTER → 2022-03-14 | Outpatient (CLI) | payer OTHER | END | disposition home or self-care (01) | LOC: RAD 09:31 | PROVIDERS: ATTEND Nurse Practitioner Family | DX: J00 Acute nasopharyngitis [common cold] (principal); R05.9 Cough, unspecified; E78.5 Hyperlipidemia, unspecified; E11.42 Type 2 diabetes mellitus with diabetic polyneuropathy; R10.13 Epigastric pain; Z23 Encounter for immunization ==